=== PATIENT | female | born 1965 | race American Indian/Alaskan Native ===

== ENCOUNTER 2017-06-25 20:53 | Emergency (ER) | payer OTHER ==
[2017-06-25 21:00] VITALS: BMI 28.0
[2017-06-25 21:06] VITALS: RESP 18; O2SAT 99
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
[2017-06-25 23:21] VITALS: BP 131/85; PULSE 77; TEMP 98.2
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
== END 2017-06-25 22:50 | disposition home or self-care (01) ==
LOC: C.ER 20:53
DX: S13.9XXA Sprain of joints and ligaments of unspecified parts of neck, initial encounter (principal); V89.2XXA Person injured in unspecified motor-vehicle accident, traffic, initial encounter; R07.89 Other chest pain
CPT/HCPCS: 71020; 96372; 99284; J1885